=== PATIENT | female | born 1970 | race Caucasian/White ===

== ENCOUNTER 2017-06-25 20:17 | Emergency (ER) | payer OTHER ==
[~2017-06-25] VITALS: Ht 165.1 cm; Wt 68.0 kg
[2017-06-25 21:01] LABS: HEMATOCRIT 43.7 % (34.6-47.8); WHITE BLOOD COUNT 8.3 x10^3/uL (3.4-10)
[2017-06-25 21:12] LABS: BLOOD UREA NITROGEN 15 mg/dL (7-18)
[2017-06-25 22:18] VITALS: BP 117/79
[2017-06-25 22:28] LABS: PATH.CAST-FLAG NOT PRESENT; SPERM-FLAG NOT PRESENT; SRC-FLAG NOT PRESENT; XTAL-FLAG NOT PRESENT; YLC-FLAG NOT PRESENT
== END 2017-06-25 22:55 | disposition home or self-care (01) ==
LOC: ED 22:30
DX: O03.4 Incomplete spontaneous abortion without complication (principal); Z3A.11 11 weeks gestation of pregnancy
CPT/HCPCS: 36415; 76801; 80048; 81001; 82040; 84702; 85025; 86901; 99285